=== PATIENT | female | born 1990 | race Caucasian/White ===

== ENCOUNTER 2017-11-08 14:41 | Emergency (ER) | payer BC ==
[~2017-11-08] VITALS: Ht 157.5 cm; Wt 63.5 kg
[~2017-11-08 14:41] MED LIST: ACYCLOVIR 200200 MG; ACYCLOVIR 200200 MG PO; CIPROFLOXACIN500 M1 PO; IBUPROFEN 600600 M1 PO; IRON325 PO; NOHOMEMEDICATIONS; NORCO 5-325 TA1 EACH PO; PEPCID20 MG PO; PRENATAL PO; TOBREX5 ML OPHTHALMIC; TRINATE TABLET1 TAB; WOMEN'S DAILY1 EAC3 PO; ZOFRAN 4 MG ORAL4 MG SUBLING; ZOFRAN ODT4 MG PO
[2017-11-08 15:12] LABS: HEMATOCRIT 35.8 % (37.0-47.0); HEMOGLOBIN 11.4 gm/dL (12.0-15.0); MCHC 31.9 g/dL (28.0-37.0); RBC 4.98 mil/uL (4.20-5.00); RDW 16.4 % (10.5-14.5); WBC 6.3 thou/uL (4.0-11.0)
[2017-11-08] MEDS ORDERED: IRON325 PO (15:14)
[2017-11-08 15:21] LABS: CALCIUM 8.9 mg/dL (8.5-10.1); POTASSIUM 3.6 mmol/L (3.5-5.1)
[2017-11-08 15:46] LABS: URINE BILIRUBIN NEGATIVE (Negative); URINE BLOOD NEGATIVE (Negative); URINE CLARITY CLEAR; URINE COLOR YELLOW; URINE GLUCOSE-RANDOM* NEGATIVE (Negative); URINE KETONES TRACE (Negative); URINE LEUKOCYTES 2+ (Negative); URINE NITRITE NEGATIVE (Negative); URINE PROTEIN (DIPSTICK) NEGATIVE (Negative); URINE UROBILINOGEN 0.2 E.U./dl (0.2-1.0)
[2017-11-08 15:57] LABS: BACTERIA >30 Many /HPF (None Seen); CASTS None Seen /LPF (None Seen); CRYSTALS None Seen /LPF (None Seen); SQUAMOUS 0-3 Few /LPF (0-3); URINE RBC None Seen /HPF (0-2); URINE WBC >25 Many /HPF (0-5)
[2017-11-08] MEDS ORDERED: HYDROCODONE-AP1 EAC6 PO (16:02)
[2017-11-08] MEDS ORDERED: VALTREX1000 MG PO (16:02)
[2017-11-08] MEDS ORDERED: KEFLEX500 M1 PO (16:06)
[2017-11-08 16:22] VITALS: BP 110/80
[2017-11-10 18:09] LABS: HSV 1 DNA Negative (Negative); HSV 2 DNA Positive (Negative)
[2017-11-11 14:56] LABS: HSV PCR SOURCE BLISTER
== END 2017-11-08 16:24 | disposition home or self-care (01) ==
LOC: ER 14:41
PROVIDERS: Physician Assistant
DX: N39.0 Urinary tract infection, site not specified (principal); A60.09 Herpesviral infection of other urogenital tract